=== PATIENT | male | born 1990 | race African-American/Black ===

== ENCOUNTER 2024-11-16 12:25 | Emergency (ER) | payer MEDICAID ==
[~2024-11-16] VITALS: Ht 182.9 cm; Wt 122.0 kg
[2024-11-16 12:27] VITALS: O2SAT 100
[2024-11-16 12:31] VITALS: BP 129/76; PULSE 77; RESP 18; TEMP 36.8; O2SAT 99
[2024-11-16 13:13] LABS: CHLORIDE 102 mEq/L (98-107); POTASSIUM 4.6 mEq/L (3.5-5.1); SODIUM 137 mEq/L (136-145)
[2024-11-16 13:14] LABS: CALCIUM 9.3 mg/dL (8.7-10.4); CARBON DIOXIDE 31 mEq/L (21-32)
[2024-11-16 13:16] LABS: BASOPHILS % 0.9 % (0.0-2.0); DIFFERENTIAL COMMENT 0; EOSINOPHILS % 1.1 % (0.0-5.0); HEMATOCRIT. 48.7 % (42.0-52.0); HEMOGLOBIN. 15.9 g/dL (14.0-18.0); LYMPHOCYTES % 55.7 % (20.0-50.0); MEAN CORPUSCULAR HEMOGLOBIN 30.3 pg (28.0-32.0); MEAN CORPUSCULAR HGB CONC 32.6 g/dL (31.0-37.0); MEAN CORPUSCULAR VOLUME 92.9 fL (80.0-94.0); MEAN PLATELET VOLUME 7.8 fl (7.4-10.4); MONOCYTES % 8.8 % (2.0-8.0); NEUTROPHILS % 33.5 % (40.0-76.0); PLATELET 173 x1000/uL (130-400); RED BLOOD CELL COUNT 5.25 mill/uL (4.7-6.1); RED CELL DISTRIBUTION WIDTH 13.9 % (11.6-14.6)
[2024-11-16 13:19] LABS: CREATININE 1.2 mg/dL (0.6-1.3); GLUCOSE 91 mg/dL (70-105); UREA NITROGEN BLOOD 16 mg/dL (9-23)
[2024-11-16 13:20] LABS: TROPONIN I HIGH SENSITIVITY 18 ng/L (3.0-53)
[2024-11-16 13:21] LABS: ALANINE AMINOTRANSFERASE 70 IU/L (10-49); ASPARTATE AMINOTRANSFERASE 34 IU/L (<34); BILIRUBIN TOTAL 0.6 mg/dL (0.1-1.0)
[2024-11-16 13:22] LABS: PROTEIN TOTAL 7.2 g/dL (6.0-8.3)
[2024-11-16 13:24] LABS: INR 1.1; PARTIAL THROMBOPLASTIN TIME 25.9 sec (23.4-31.0); PROTHROMBIN TIME 11.5 sec (9.6-11.0)
[2024-11-16] MEDS ORDERED: APIX5TAB PO (13:45)
== END 2024-11-16 13:55 | disposition home or self-care (01) ==
LOC: ER 12:25
DX: R07.89 Other chest pain (principal); Z86.718 Personal history of other venous thrombosis and embolism; Z79.899 Other long term (current) drug therapy
CPT/HCPCS: 36415; 71045; 80053; 84484; 85025; 93005; 99285

== ENCOUNTER 2025-09-09 18:49 | Emergency (ER) | payer SELFPAY ==
[~2025-09-09] VITALS: Ht 182.9 cm; Wt 118.0 kg
[~2025-09-09 18:49] MED LIST: APIX5TAB PO
[2025-09-09 19:02] VITALS: O2SAT 99
[2025-09-09 19:51] LABS: BASOPHILS % 1.2 % (0.0-2.0); EOSINOPHILS % 2.2 % (0.0-5.0); HEMATOCRIT. 46.9 % (42.0-52.0); HEMOGLOBIN. 15.6 g/dL (14.0-18.0); LYMPHOCYTES % 49.4 % (20.0-50.0); MEAN PLATELET VOLUME 8.1 fl (7.4-10.4); MONOCYTES % 6.8 % (2.0-8.0); NEUTROPHILS % 40.4 % (40.0-76.0); PLATELET 177 x1000/uL (130-400); RED BLOOD CELL COUNT 5.03 mill/uL (4.7-6.1); RED CELL DISTRIBUTION WIDTH 14.1 % (11.6-14.6)
[2025-09-09 20:04] LABS: INR 1.0
[2025-09-09] MEDS: CEFTRIAXONE SODIUM 500MG VIAL IM ONE (20:08)
[2025-09-09 20:09] LABS: CREATININE 1.2 mg/dL (0.6-1.3)
[2025-09-09 20:10] LABS: PROTEIN TOTAL 7.1 g/dL (6.0-8.3); TROPONIN I HIGH SENSITIVITY 15 ng/L (3.0-53); UREA NITROGEN BLOOD 11 mg/dL (9-23)
[2025-09-09 20:11] LABS: ASPARTATE AMINOTRANSFERASE 29 IU/L (<34); BILIRUBIN DIRECT < 0.1 mg/dL (<=3.0)
[2025-09-09] MEDS: APIXABAN 5 MG TABLET PO STA (20:11)
[2025-09-09 20:12] LABS: BILIRUBIN TOTAL 0.4 mg/dL (0.1-1.0)
[2025-09-09] MEDS ORDERED: DOXY100T2 MT (21:24)
[2025-09-09] MEDS ORDERED: APIX5TAB MT (21:24)
[2025-09-09 21:26] LABS: CLARITY URINE CLEAR (CLEAR); COLOR URINE YELLOW (YELLOW); GLUCOSE URINE NEGATIVE (NEGATIVE); KETONES URINE NEGATIVE (NEGATIVE); LEUKOCYTE ESTERASE URINE NEGATIVE (NEGATIVE); NITRITE URINE NEGATIVE (NEGATIVE); OCCULT BLOOD URINE NEGATIVE (NEGATIVE); PH URINE 5.5 (4.5-8.0); PROTEIN URINE NEGATIVE (NEGATIVE); SPECIFIC GRAVITY URINE 1.021 (1.005-1.030); UROBILINOGEN URINE 0.2 E.U./dL (0.2-1.0)
[2025-09-09 21:33] LABS: HEPATITIS A AB IGM NEGATIVE (Negative); HEPATITIS B CORE AB IGM NEGATIVE (Negative)
[2025-09-09 21:34] LABS: HEPATITIS C AB NON REACTIVE (Neg) (Negative)
[2025-09-09 21:41] VITALS: BP 141/75; PULSE 87; RESP 16; TEMP 37.1; O2SAT 98
[2025-09-13 04:07] LABS: CHLAMYDIA TRACHOMATIS NAA Negative (Negative); NEISSERIA GONORRHOEAE NAA Negative (Negative)
== END 2025-09-09 21:46 | disposition home or self-care (01) ==
LOC: ER 18:49
DX: Z11.3 Encounter for screening for infections with a predominantly sexual mode of transmission (principal); Z76.0 Encounter for issue of repeat prescription; I49.3 Ventricular premature depolarization; Z86.711 Personal history of pulmonary embolism; Z86.718 Personal history of other venous thrombosis and embolism; R06.02 Shortness of breath; Z79.899 Other long term (current) drug therapy
CPT/HCPCS: 99285; 71045; 86592; 87491; 87529 ×2; 87591; 80076; 80048; 81003; 83880; 83690; 85025; 85610; 85730; 87340; 84484; 36415; 86709; 93005; 96372; 86705; J0696